=== PATIENT | female | born 1980 | race American Indian/Alaskan Native ===

== ENCOUNTER 2017-04-17 05:48 | Inpatient (IN) | payer OTHER ==
[2017-04-09 12:19] VITALS: BMI 39.4
[2017-04-17 07:09] LABS: HEMOGLOBIN 9.1 g/dL (11.0-16.0); MEAN CELL VOLUME 58.3 fL (81.0-99.0); MEAN CORPUSCULAR HEMOGLOBIN 18.1 pg (27.0-31.0); MEAN PLATELET VOLUME 9.7 fL (7.2-11.7); RBC 5.01 Mil/uL (3.80-5.20); RED CELL DISTRIBUTION WIDTH 38.8 % (11.5-14.5); WHITE BLOOD COUNT 9.7 K/uL (4.8-10.8)
[2017-04-17] MEDS ORDERED: Bacitracin Ointment 30 GM TUBE ONE (07:18)
[2017-04-17] MEDS ORDERED: Vasopressin 20 Units/ml Inj ONE (07:19)
[2017-04-17] MEDS ORDERED: cefOXitin IV 1 gm in Dextrose 2 GM/100 ML BAG IVPB ONE (07:19)
[2017-04-17] MEDS ORDERED: Midazolam 2 MG/2 ML VIAL ONE (07:37)
[2017-04-17] MEDS ORDERED: Propofol 10 mg/ml Inj (20 ML) ONE (07:37)
[2017-04-17] MEDS ORDERED: Succinylcholine Chloride 20 mg/ml Syr (5 ml) IV ONE (07:57)
[2017-04-17] MEDS ORDERED: Neostigmine Methylsulfate 3mg/3ml Syringe IV ONE (09:11)
[2017-04-17] MEDS ORDERED: Rocuronium 10 mg/ml (10 ml) ONE (09:13)
[2017-04-17] MEDS ORDERED: Morphine Monoject Barrel PCA 1mg/ml IV PRN (09:34)
[2017-04-17] MEDS ORDERED: HYDROmorphone 0.5 mg/0.5 ml ISec IVP PRN (09:34)
[2017-04-17] MEDS ORDERED: Lactated Ringer's 1,000 ML IV SCH (09:45)
[2017-04-17] MEDS ORDERED: Lactated Ringer's 1,000 ML IV ONE (10:04)
[2017-04-17 10:38] LABS: EOS # 0.1 K/uL (0.0-0.7); LYMPH # 2.1 K/uL (1.0-4.3); MONO # 1.1 K/uL (0.0-0.8); NEUT # 6.5 K/uL (1.8-7.0)
--- NOTE | 2017-04-17 16:31 | OP ---
PROCEDURE DATE: PREOPERATIVE DIAGNOSES: Fibroid uterus, menorrhagia, and anemia. POSTOPERATIVE DIAGNOSES: Fibroid uterus, menorrhagia, anemia, and adenomyosis. FINDINGS: An 18-week size multi-fibroid uterus, a total of 10 intramural myomas were removed with extensive areas of adenomyosis on the both anterior and posterior mcmillan of the uterus extending all the way towards the endometrial cavity. Both tubes and ovaries are normal. SURGEON: Nelida Jones MD. ANESTHESIA: General. TANK WASHER: WILMAR Walden ESTIMATED BLOOD LOSS: 400 mL. COMPLICATIONS: Nil. DESCRIPTION OF PROCEDURE: After the risks, benefits, and alternatives of the planned procedures, including but not limited to infection, hemorrhage, deep vein thrombosis, atelectasis, pneumonia, pulmonary embolism, damage to the bladder, damage to the ureter, renal insufficiency, renal failure, wound infection, wound dehiscence, incisional hernia, keloid formation, damage to the large and small intestine, damage to the inferior vena cava and aorta requiring extensive repair, anesthesia complications, electrolyte imbalance, possibility of , risk of recurrence have been explained to the patient and all her questions were answered, and informed consent was obtained. The patient was taken to the operating room in a stable condition. Under a suitable level of general anesthesia, she was prepped and draped in a sterile fashion after having been placed in a supine position. The abdomen was entered through a Pfannenstiel-type incision, carried through the subcutaneous tissues to the fascia. Fascia was opened transversely and dissected off the rectus abdominis musculature. The rectus abdominis musculature was then in the midline to remove the parietal peritoneum, which was entered sharply and incised superiorly and inferiorly. Bowel was packed away from the pelvic cavity. Posterior and anterior mcmillan of the uterus were infiltrated using Pitressin. A posterior longitudinal incision was made. A wide section of adenomyosis was dissected and submitted for pathology. A total of 5 intramural myomas were also enucleated and submitted for pathology. The excision site was then closed in 4 layers with the first 3 layers being interrupted layers using 0 Vicryl suture and the superficial myometrium and serosa being closed using 0 Vicryl suture in a baseball stitch fashion. Hemostasis was good. An anterior longitudinal incision was made over the uterus, through which a total of 5 intramural myomas were enucleated. Also extensive areas of adenomyosis were visualized extending all the way up to the endometrial cavity. The endometrial cavity was without debris. A section of adenomyosis was resected and submitted for pathology together with 5 intramural myomas. The excision site was also closed in layers with the first 3 layers being interrupted layers using 0 Vicryl sutures and the superficial myometrium and serosa being closed using 0 Vicryl suture in a baseball stitch fashion. Hemostasis was good. The abdomen was then irrigated using copious amounts of saline. The saline was evacuated. The abdomen was then closed in layers with 0 Chromic to the parietal peritoneum. Rectal muscles were re-approximated using interrupted sutures of 0 chromic. Fascia was re-approximated using 2 separate running sutures of 0 Vicryl to meet in the midline. Subcutaneous tissues were re-approximated using interrupted sutures of 0 plain and the initial skin incision was re-approximated using 4-0 Vicryl in a subcuticular fashion. Estimated blood loss for the procedure was 400 mL. Pad, needle and instrument counts were correct x2. There were no complications. Nelida Jones MD
[2017-04-17] MEDS: cefOXitin 2 GM in Sodium Chloride 0.9% 100 ML IVPB SCH ×2 (16:33→23:30)
[2017-04-18 08:13] LABS: HEMOGLOBIN 8.6 g/dL (11.0-16.0); MEAN CORPUSCULAR HEMOGLOBIN 18.8 pg (27.0-31.0); MEAN PLATELET VOLUME 10.3 fL (7.2-11.7); RBC 4.56 Mil/uL (3.80-5.20); RED CELL DISTRIBUTION WIDTH 39.3 % (11.5-14.5); WHITE BLOOD COUNT 14.1 K/uL (4.8-10.8)
[2017-04-18] MEDS: cefOXitin 2 GM in Sodium Chloride 0.9% 100 ML IVPB SCH (08:26)
[2017-04-18 08:28] LABS: MEAN CELL VOLUME 60.8 fL (81.0-99.0)
[2017-04-18] MEDS: Simethicone 80 mg Chewtab PO PRN ×2 (09:50→18:11)
[2017-04-18] MEDS: Enoxaparin 40 mg Syringe SC SCH (09:50)
[2017-04-18] MEDS: Oxycodone/Acetaminophen 5/325 mg Tab PO PRN ×3 (12:39→21:50)
[2017-04-18] MEDS ORDERED: cefOXitin IV 2 gm in Saline 2 GM in Sodium Chloride 0.9% 50 ML IV SCH (21:00)
[2017-04-18] MEDS ORDERED: cefOXitin IV 2 gm in Saline 2 GM in Sodium Chloride 0.9% 100 ML IV SCH (21:00)
[2017-04-18] MEDS: cefOXitin 2 GM in Sodium Chloride 0.9% 100 ML IV SCH (21:53)
[2017-04-19] MEDS: Oxycodone/Acetaminophen 5/325 mg Tab PO PRN ×2 (03:00→08:13)
[2017-04-19] MEDS: cefOXitin 2 GM in Sodium Chloride 0.9% 100 ML IV SCH (05:15)
[2017-04-19 05:23] VITALS: RESP 18
[2017-04-19 08:12] VITALS: BP 125/79; PULSE 82; TEMP 98.7; O2SAT 99
[2017-04-19] MEDS: Simethicone 80 mg Chewtab PO PRN (08:14)
[2017-04-19] MEDS: Enoxaparin 40 mg Syringe SC SCH (10:09)
--- NOTE | 2017-04-20 06:05 | OP ---
SUBJECTIVE: Patients has no complaint. She had a bowel movement. OBJECTIVE: VITAL SIGNS: Stable. She is afebrile. ABDOMEN: Soft. Bowel sounds are normal, and patients is clean and intact. EXTREMITIES: Nontender. NEUROLOGIC: With no evidence of DVT. Homans sign is negative. She is alert and oriented x3. ASSESSMENT: Patient is status post myomectomy, excision of adenomyosis. PLAN: To discharge the patient on Keflex 500 mg four times a day, 7 tabs, 7 days; and Tylenol #3, two tablets q.4 hours p.r.n. for a total of 40 tablets. We will follow the patient in office in one week. Nelida Jones MD cc:
--- NOTE | 2017-04-20 06:06 | OP ---
The patient is a 36-year-old female with a history of fibroid uterus, menorrhagia, was admitted and underwent exploratory laparotomy, myomectomy. Patient was also noted to have significant adenomyosis, portions of which were resected both anterior and posteriorly. Postoperatively, she remained afebrile. She was discharged home on postoperative day#2 on Keflex 500 mg four times a day x7 and Tylenol #3 two tablets q.4 hourly p.r.n. To be followed up in the office in one week. Nelida Jones MD
== END 2017-04-19 13:20 | disposition home or self-care (01) | DRG 359 ==
LOC: C.9S 05:48 → C.4M 14:59
PROVIDERS: ADMIT Obstetrics & Gynecology Reproductive Endocrinology; ATTEND Obstetrics & Gynecology Reproductive Endocrinology
PROC: 0UB90ZX Excision of Uterus, Open Approach, Diagnostic (ICD-10-PCS; 2017-04-17)
PROC: 0UB90ZZ Excision of Uterus, Open Approach (ICD-10-PCS; principal; 2017-04-17 07:35)
DX: D25.1 Intramural leiomyoma of uterus (principal); N80.0 Endometriosis of uterus; N92.0 Excessive and frequent menstruation with regular cycle; D64.9 Anemia, unspecified